=== PATIENT | female | born 1955 | race Caucasian/White ===

== ENCOUNTER → 2017-10-27 | Outpatient (CLI) | payer OTHER ==
[~2017-10-27] MED LIST: CONEST.9 PO; GABA300 PO; KETO10 PO; Percocet 5-3251 EACH PO; TRAZ150T57
== END | disposition home or self-care (01) ==
LOC: LAB 17:49
DX: N95.2 Postmenopausal atrophic vaginitis (principal)
CPT/HCPCS: 87070; 87205

== ENCOUNTER → 2017-11-15 | Outpatient (CLI) | payer OTHER | END | disposition home or self-care (01) | LOC: OLS 14:23 | DX: N89.8 Other specified noninflammatory disorders of vagina (principal) | CPT/HCPCS: 87070; 87205 ==

== ENCOUNTER 2019-01-31 07:48 | Day surgery (SDC) | payer OTHER ==
[~2019-01-31] VITALS: Ht 157.5 cm; Wt 84.1 kg
[~2019-01-31 07:48] MED LIST changes: +CYCL10 PO; +Estrace Vagin42.5 GM VAG; +GABA600 PO; +METF500C PO; +SERT25 PO; +TERC.4TC VAG; +TRAZ50 PO; +Ultram50 MG PO
--- NOTE | 2019-01-31 08:38 | NUR ---
01/31/19 0838 Mercedes Chowdary FIRST IV ATTEMPT IN RIGHT HAND AND SECOND ATTEMPT IN RIGHT FOREARM INFILTRATED, BY [facility].HEATHER. THIRD ATTEMPT IN LEFT HAND WAS SUCCESSFUL AND TOLERATED WELL, BY [facility].OLEGARIO.
== END 2019-01-31 10:20 | disposition home or self-care (01) ==
LOC: ORSCSDS 07:48
PROVIDERS: Surgery
PROC: 0DBM8ZX Excision of Descending Colon, Via Natural or Artificial Opening Endoscopic, Diagnostic (ICD-10-PCS; principal; 2019-01-31 09:15)
PROC: 0DBK8ZX Excision of Ascending Colon, Via Natural or Artificial Opening Endoscopic, Diagnostic (ICD-10-PCS; principal; 2019-01-31 09:15)
DX: Z12.11 Encounter for screening for malignant neoplasm of colon (principal); D12.2 Benign neoplasm of ascending colon; D12.4 Benign neoplasm of descending colon; E11.9 Type 2 diabetes mellitus without complications; Z79.84 Long term (current) use of oral hypoglycemic drugs; Z79.899 Other long term (current) drug therapy
CPT/HCPCS: 82947; 88305; J2704; J7120

== ENCOUNTER → 2020-12-03 | Outpatient (CLI) | payer MEDICARE, OTHER | END | disposition home or self-care (01) | LOC: LAB 17:44 → LAB SHORT 17:44 | DX: R30.0 Dysuria (principal) | CPT/HCPCS: 87077; 87086; 87186 ==

== ENCOUNTER → 2021-06-10 | Outpatient (CLI) | payer MEDICARE, OTHER | END | disposition home or self-care (01) | LOC: LAB SHORT 15:01 | DX: R30.9 Painful micturition, unspecified (principal) | CPT/HCPCS: 87086 ==

== ENCOUNTER → 2023-01-19 | Outpatient (CLI) | payer OTHER | END | disposition home or self-care (01) | LOC: LAB 19:13 → LAB SHORT 19:13 | DX: R30.0 Dysuria (principal) | CPT/HCPCS: 87086 ==

== ENCOUNTER 2025-05-30 11:41 | Day surgery (SDC) | payer OTHER ==
[~2025-05-30] VITALS: Ht 157.5 cm; Wt 66.0 kg
[2025-05-30] VITALS (9 sets, daily range): BP systolic 79–110; BP diastolic 54–81
[~2025-05-30 11:41] MED LIST changes: +MOUNJARO10 MG/0.5 SC; +PROP10 PO; +ROPI.25 PO
[2025-05-30] MEDS ORDERED: Dexmedetomidine HCL 200 MCG / 2 ML ONE (15:02)
[2025-05-30] MEDS ORDERED: Midazolam HCL 1 MG/ML 5MLVIAL ONE (15:03)
[2025-05-30] MEDS ORDERED: FentaNYL Citrate 50 MCG/ML 2 ML Injection ONE ×2 (15:03→15:39)
--- NOTE | 2025-05-30 15:41 | NUR ---
05/30/25 1541 Liu Dempsey MONITOR INTACT WITH CONTINUOUS PULSE OXIMETRY, CONTINUOUS END TITAL CO2, 3-LEAD EKG AND INTERMITTENT BLOOD PRESSURE.
[2025-05-30] MEDS ORDERED: Midazolam HCl 1MG / ML 2ML Vial ONE (15:42)
[2025-05-30] MEDS ORDERED: Flumazenil 0.1 MG / ML 5ML Vial ONE (16:07)
--- NOTE | 2025-05-30 16:16 | NUR ---
REPORT RECEIVED FROM LEON ISLAS. VSS. PT ON RA. PT A&OX4. PT ABLE TO REPOSITION SELF IN BED. PT REQUESTING PO FLUIDS AND TOLERATING THEM WELL. PT DENIES PAIN, NAUSEA OR OTHER DISCOMFORTS.
--- NOTE | 2025-05-30 16:58 | NUR ---
PT HYPOTENSIVE ON MONITOR 70S/50S. ASYMPTOMATIC. NOTIFIED AND ORDERED ANOTHER LITER OF LR.
--- NOTE | 2025-05-30 17:55 | NUR ---
DISCHARGE NOTE PT A&OX4, BREATHING RA, VSS, PT TOLERATING PO INTAKE. PT STATES SHE FEELS NO SYMPTOMS FROM PREVIOUS HYPOTENSION. 1L BOLUS OF LR GIVEN PER .
[2025-05-30] MEDS ORDERED: Ketamine HCl 100 MG / ML 5ML Vial XX ONE (18:47)
== END 2025-05-30 17:45 | disposition home or self-care (01) ==
LOC: ORSCMMR 11:41 → ORD 12:30 → ORSCMMR 13:31
PROVIDERS: Family Medicine
PROC: 0DJD8ZZ Inspection of Lower Intestinal Tract, Via Natural or Artificial Opening Endoscopic (ICD-10-PCS; principal; 2025-05-30 15:15)
DX: Z12.11 Encounter for screening for malignant neoplasm of colon (principal); Z86.0100 Personal history of colon polyps, unspecified; E78.2 Mixed hyperlipidemia; K64.0 First degree hemorrhoids; K57.30 Diverticulosis of large intestine without perforation or abscess without bleeding; K21.9 Gastro-esophageal reflux disease without esophagitis; Z79.899 Other long term (current) drug therapy
CPT/HCPCS: J2250; J3010; J7120

== ENCOUNTER → 2025-08-08 | Outpatient (CLI) | payer OTHER | END | disposition home or self-care (01) | LOC: LAB SHORT 18:43 → LAB 18:43 | DX: N39.0 Urinary tract infection, site not specified (principal) | CPT/HCPCS: 87077; 87086; 87186 ==